=== PATIENT | female | born 1995 | race Caucasian/White ===

== ENCOUNTER 2018-08-30 23:13 | Emergency (ER) | payer SELFPAY ==
[~2018-08-30 23:13] MED LIST: ACET-1966 PO; ALBU8.5H IH; ALBU8.5H12 IH; AZIT-18 PO; DOXY-179 PO; ETON68IM SQ; FLUT1DIS27 IH; IBUP800T37 PO; PANT40TA65 PO; PRED-1 PO; PRED20TA6 PO; TRAM-420 PO
[2018-08-30] MEDS ORDERED: FAMOTIDINE(*) 20MG/50ML PREMIX 50 ML IVPB ONE (23:20)
[2018-08-30] MEDS ORDERED: ONDANSETRON 4 MG/2 ML VIAL IVP ONE (23:20)
[2018-08-30] MEDS ORDERED: PREN-127 PO (23:27)
--- NOTE | 2018-08-30 23:30 | ER Report ---
History and Physical Time Seen By MD: 23:15 Hx. of Stated Complaint: PATIENT C/O ABOUT MID ABDOMINAL PAIN RADIATING TO BACK, SOME NAUSEA , IT STARTED AROUND 22:00 HPI/ROS CHIEF COMPLAINT: epigastric pain, nausea and may be HISTORY OF PRESENT ILLNESS: Pt states that she is 3 days late with her period and she is concerned she may be . Pt states she has been nauseated with dry heaving. Tonight when lying in bed pt started with epigastric pain that radiates to her back. No change in bm. no dysuria. no fevers or chills. Pt states she did take omeprazole this afternoon due to reflux. no cp or sob REVIEW OF SYSTEMS: Constitutional: No fever, no chills. Eyes: No discharge. ENT: No sore throat. Cardiovascular: No chest pain, no palpitations. Respiratory: No cough, no shortness of breath. Gastrointestinal: + abdominal pain, +dry heaving, + nausea Genitourinary: No hematuria or dysuria. Musculoskeletal: No back pain. Skin: No rashes. Neurological: No headache. Allergies: Coded Allergies: amoxicillin (Verified Adverse Reaction, Intermediate, DIARRHEA, HEART BURN, 12/14/16) Home Meds Reported Medications Vits W-Ca,Fe,Fa(<1MG) ( VITAMINS) 1 Each Tablet, PO DAILY, TAB 08/30/18 Discontinued Reported Medications Etonogestrel (NEXPLANON) 68 Mg Implant, 68 MG SQ 03/25/14 Past Medical/Surgical History Pmhx: headaches, bronchitis, asthma, fractures. Patient is no significant past surgical history. Hx Smoking: Yes (1/2 PACK/DAY) Smoking Status: Current: Every Day Smoker Exposure to Second Hand Smoke?: Yes Hx Substance Use Disorder: No Hx Alcohol Use: No Constitutional Vital Sign - Last 24 Hours 08/30/18 08/30/18 08/30/18 08/30/18 23:16 23:17 23:18 23:25 Temp 97.6 Pulse 101 72 Resp 20 B/P (MAP) 142/89 (106) 142/89 157/89 (111) 157/89 (111) Pulse Ox 96 96 O2 Delivery Room Air Room Air 08/30/18 08/30/18 08/30/18 23:28 23:30 23:43 Pulse 81 76 B/P (MAP) 116/94 (101) Pulse Ox 93 93 O2 Delivery Room Air Room Air Intake and Output 08/30/18 08/30/18 08/31/18 14:59 22:59 06:59 Intake Total 50 ml Balance 50 ml Physical Exam General Appearance: The patient is alert, has no immediate need for airway protection and no signs of toxicity. Eyes: Pupils equal and round no pallor or injection, EOMI ENT: no pharyngeal erythema or exudates, Mucous membranes are moist, TM are nl b/l Respiratory: There are no retractions, lungs are clear to auscultation. Cardiovascular: Regular rate and rhythm. pulses are equal and symmetrical Gastrointestinal: Abdomen is soft with epigastric tenderness, no masses, bowel sounds normal, no guarding, no rigidity or rebound Neurological: Cranial nerves II-XII grossly intact, no sensory or motor loss Skin: Warm and dry, no rashes. Musculoskeletal: Neck is supple non tender, no vertebral tenderness, no costophrenic tenderness Extremities are nontender, non swollen and have full range of motion. DIFFERENTIAL DIAGNOSIS: After history and physical exam differential diagnosis was considered for PUD, gastritis, h pylori, pancreatitis, early appendicitis, Medical Decision Making Data Points Result Diagram: 08/30/18232808/30/182328 Laboratory Hematology Test 08/30/18 23:29 Red Blood Count 5.70 M/uL (4.17-5.56) Mean Corpuscular Volume 89.1 fL (80.0-96.0) Mean Corpuscular Hemoglobin 30.7 pg (26.0-33.0) Mean Corpuscular Hemoglobin Concent 34.4 g/dL (32.0-36.0) Red Cell Distribution Width 13.5 % (11.5-14.5) Mean Platelet Volume 10.0 fL (7.2-11.1) Neutrophils (%) (Auto) 49.3 % (39.4-72.5) Lymphocytes (%) (Auto) 39.1 % (17.6-49.6) Monocytes (%) (Auto) 7.0 % (4.1-12.4) Eosinophils (%) (Auto) 3.4 % (0.4-6.7) Basophils (%) (Auto) 1.2 % (0.3-1.4) Nucleated RBC Relative Count (auto) 0.1 /100WBC Neutrophils # (Auto) 3.3 K/uL (2.0-7.4) Lymphocytes # (Auto) 2.7 K/uL (1.3-3.6) Monocytes # (Auto) 0.5 K/uL (0.3-1.0) Eosinophils # (Auto) 0.2 K/uL (0.0-0.5) Basophils # (Auto) 0.1 K/uL (0.0-0.1) Nucleated RBC Absolute Count (auto) 0.01 K/uL Sodium Level 143 mmol/L (137-145) Potassium Level 3.8 mmol/L (3.5-5.0) Chloride Level 110 mmol/L (98-107) Carbon Dioxide Level 24 mmol/L (22-31) Blood Urea Nitrogen 10 mg/dl (7-18) Creatinine 0.70 mg/dl (0.52-1.04) Glomerular Filtration Rate Calc > 60.0 Random Glucose 103 mg/dl (75-110) Calcium Level 9.1 mg/dl (8.4-10.2) Total Bilirubin 0.7 mg/dl (0.2-1.3) Aspartate Amino Transf (AST/SGOT) 15 U/L (0-35) Alanine Aminotransferase (ALT/SGPT) 36 U/L (0-56) Alkaline Phosphatase 86 U/L (0-126) Total Protein 6.8 g/dl (6.3-8.2) Albumin 3.9 g/dl (3.5-5.0) Lipase 138 U/L (23-300) Human Chorionic Gonadotropin, Qual Negative (NEGATIVE) Helicobacter pylori IgG Antibody Negative (NEGATIVE) Chemistry Test 08/30/18 23:29 White Blood Count 6.8 k/uL (4.5-11.0) Red Blood Count 5.70 M/uL (4.17-5.56) Hemoglobin 17.5 g/dL (12.0-16.0) Hematocrit 50.8 % (34.0-47.0) Mean Corpuscular Volume 89.1 fL (80.0-96.0) Mean Corpuscular Hemoglobin 30.7 pg (26.0-33.0) Mean Corpuscular Hemoglobin Concent 34.4 g/dL (32.0-36.0) Red Cell Distribution Width 13.5 % (11.5-14.5) Platelet Count 146 K/uL (150-450) Mean Platelet Volume 10.0 fL (7.2-11.1) Neutrophils (%) (Auto) 49.3 % (39.4-72.5) Lymphocytes (%) (Auto) 39.1 % (17.6-49.6) Monocytes (%) (Auto) 7.0 % (4.1-12.4) Eosinophils (%) (Auto) 3.4 % (0.4-6.7) Basophils (%) (Auto) 1.2 % (0.3-1.4) Nucleated RBC Relative Count (auto) 0.1 /100WBC Neutrophils # (Auto) 3.3 K/uL (2.0-7.4) Lymphocytes # (Auto) 2.7 K/uL (1.3-3.6) Monocytes # (Auto) 0.5 K/uL (0.3-1.0) Eosinophils # (Auto) 0.2 K/uL (0.0-0.5) Basophils # (Auto) 0.1 K/uL (0.0-0.1) Nucleated RBC Absolute Count (auto) 0.01 K/uL Glomerular Filtration Rate Calc > 60.0 Calcium Level 9.1 mg/dl (8.4-10.2) Total Bilirubin 0.7 mg/dl (0.2-1.3) Aspartate Amino Transf (AST/SGOT) 15 U/L (0-35) Alanine Aminotransferase (ALT/SGPT) 36 U/L (0-56) Alkaline Phosphatase 86 U/L (0-126) Total Protein 6.8 g/dl (6.3-8.2) Albumin 3.9 g/dl (3.5-5.0) Lipase 138 U/L (23-300) Human Chorionic Gonadotropin, Qual Negative (NEGATIVE) Helicobacter pylori IgG Antibody Negative (NEGATIVE) ED Course/Re-evaluation Clinical Indication for ER IV: IV Access ED Course check labs and medicate 08/31/2018 12:39:39 am Pts pain resolved after the GI cocktail. Pts labs are stable. Pts hb level similar to priors. Pts test is negative today. pt is 3 days late. recommend pt take a home test this week if still not have her period. 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 Pt has omeprazole at home but does not take it regularly. Will have pt start daily. Pt is to follow up with pcp and gear tooth lapping machine operator. If symptoms change (fever, worsening symptoms, etc) then she is to return for repeat blood work and possible imaging. At this time with improvement of symptoms and no fever or elevation in wbc radiation risk too high for imaging Decision to Disposition Date: Aug 31, 2018 Decision to Disposition Time: 00:43 Depart Departure Latest Vital Signs Vital Signs Date Time Temp Pulse Resp B/P (MAP) Pulse Ox O2 Delivery O2 Flow Rate FiO2 08/30/18 23:43 76 93 Room Air 08/30/18 23:30 116/94 (101) 08/30/18 23:17 97.6 20 Impression: Primary Impression: Gastroenteritis Additional Impression: Epigastric abdominal pain Condition: Improved Disposition: HOME OR SELF-CARE Referrals: MADELIN LOUIS MD New Scripts Ondansetron Hcl (ZOFRAN) 4 Mg Tablet 4 MG PO Q6-8H PRN for NAUSEA/VOMITING, #15 TAB Prov: GURU SUN DO 08/31/18 Patient Instructions: Epigastric Pain (ED) Additional Instructions: Omeprazole (prilosec) once a day for the next 2 weeks Zofran one every 6 hours as needed for nausea. Follow up with corporate fitness program coordinator. If you do not get your menses in next 48 hours then recheck a test. Return for any concerns. Problem Qualifiers GURU SUN DO Aug 30, 2018 23:30
[2018-08-30 23:44] LABS: PLATELET COUNT, AUTOMATED 146 K/uL (150-450)
[2018-08-31] MEDS ORDERED: LIDOCAINE 2% VISC SLN 15ML UDC PO ONE
[2018-08-31] MEDS ORDERED: NS(*) 0.9% 1000 ML BAG 1,000 ML IV ONE
[2018-08-31] MEDS ORDERED: ATRO/SCOPOL/HYOSCY/PB 5 ML ELX PO ONE
[2018-08-31] MEDS ORDERED: MAG HYD/AL HYD/SIMETH 30ML UDC PO ONE
[2018-08-31 00:30] VITALS: BP 110/84
[2018-08-31] MEDS ORDERED: ONDA4TAB97 PO (00:44)
== END 2018-08-31 00:52 | disposition home or self-care (01) ==
LOC: ER 23:27
DX: K52.9 Noninfective gastroenteritis and colitis, unspecified (principal); R10.13 Epigastric pain
CPT/HCPCS: 36415; 83690; 84703; 85025; 86677; 96361; 96365; 96375; 99284; J2405; J3490; J7030; 82040; 82247; 82310; 82374; 82435; 82565; 82947; 84075; 84132; 84155; 84295; 84450; 84460; 84520

== ENCOUNTER 2018-09-28 15:41 | Emergency (ER) | payer SELFPAY ==
[~2018-09-28 15:41] MED LIST changes: +ONDA4TAB97 PO; +PREN-127 PO
--- NOTE | 2018-09-28 15:57 | ER Report ---
History and Physical Time Seen By MD: 15:56 Hx. of Stated Complaint: PT STARTED HAVING RIGHT SIDED BACK/ SIATIC PAIN LAST WEEK. 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 PT REPORTS PAIN STARTS IN RIGHT HIP/ BUTTOCKS, SHOOTS DOWN HER LEG AND THEN BACK UP INTO HER BACK AND SHOULDER HPI/ROS CHIEF COMPLAINT: Hip pain radiating HISTORY OF PRESENT ILLNESS: Patient is a 23 year old female presenting to the ED for hip pain that is radiating. Patient has a knot in her muscles that became agitated after a friend tried to rub it out. This happened about 1 to 2 weeks ago. 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 Patient states the pain radiates down her right leg and up towards the shoulder. Patient has tried Ibuprofen and Tylenol, stating it does not take care of the pain. Patient also states she is unable to put full weight on the leg due to pain. REVIEW OF SYSTEMS: General: No fever/chills. Respiratory: No cough, no dyspnea. Cardiovascular: No chest pain, no palpitations. Gastrointestinal: Some nausea, no vomiting, no abdominal pain. Musculoskeletal: See HPI : No dysuria, constipation, diarrhea Allergies: Coded Allergies: amoxicillin (Verified Adverse Reaction, Intermediate, DIARRHEA, HEART BURN, 12/14/16) Home Meds Active Scripts Prednisone (PREDNISONE) 20 Mg Tablet, 40 MG PO DAILY, #10 TAB Prov:CHVEY SHELTON [facility] 09/28/18 Cyclobenzaprine Hcl (CYCLOBENZAPRINE HCL) 10 Mg Tablet, 10 MG PO TID PRN for MUSCLE SPASMS, #15 TAB Prov:CHEVY SHELTON [facility] 09/28/18 Discontinued Reported Medications Vits W-Ca,Fe,Fa(<1MG) ( VITAMINS) 1 Each Tablet, PO DAILY, TAB 08/30/18 Discontinued Scripts Ondansetron Hcl (ZOFRAN) 4 Mg Tablet, 4 MG PO Q6-8H PRN for NAUSEA/VOMITING, #15 TAB Prov:GURU SUN DO 08/31/18 Past Medical/Surgical History Patient has a medical history of bronchitis, asthma, and left humerus fracture. Patient has not had any previous surgeries. Hx Smoking: Yes (1/2 PACK/DAY) Smoking Status: Current: Every Day Smoker Exposure to Second Hand Smoke?: Yes Hx Substance Use Disorder: No Hx Alcohol Use: No Constitutional Vital Sign - Last 24 Hours 09/28/18 09/28/18 09/28/18 09/28/18 15:41 15:45 15:45 16:00 Temp 98.0 Pulse ??? 80 Resp 16 B/P (MAP) 145/93 145/93 (110) 129/82 (98) Pulse Ox 94 O2 Delivery Room Air 09/28/18 09/28/18 09/28/18 09/28/18 16:11 16:30 16:41 17:00 Pulse 65 61 B/P (MAP) 115/66 (82) Pulse Ox 95 95 91 09/28/18 17:30 B/P (MAP) 98/72 (81) Pulse Ox 92 Physical Exam General Appearance: The patient is alert, has no immediate need for airway protection and no current signs of toxicity. Respiratory: Chest is non tender, lungs are clear to auscultation. Cardiac: Regular rate and rhythm Gastrointestinal: Abdomen is soft and non tender, no masses, bowel sounds normal. Musculoskeletal: Bilateral leg strength is equal. Pulses 2+ bilaterally. Tender to palpitation right lower back. DIFFERENTIAL DIAGNOSIS: After history and physical exam differential diagnosis was considered for nerve impingement, muscle strain, sciatic nerve inflammation. Medical Decision Making Data Points Laboratory Hematology Test 09/28/18 16:40 Human Chorionic Gonadotropin, Qual Negative (NEGATIVE) Chemistry Test 09/28/18 16:40 Human Chorionic Gonadotropin, Qual Negative (NEGATIVE) EKG/Imaging Imaging LUMBAR SPINE 4 VIEWS INDICATION: Back pain. COMPARISON: 07/26/2015. FINDINGS: 5 views of the lumbar spine. There are 5 nonrib-bearing lumbar vertebral bodies. The vertebral bodies are aligned. No compression fractures, bony lesions or spondylolysis. No degenerative changes. The endplates are maintained. Pedicles well seen. Soft tissues are unremarkable. IMPRESSION: Normal exam. Report Dictated By: Jovani Ramirez at 09/28/2018 5:31 PM Report E-Signed By: Jovani Ramirez at 09/28/2018 5:34 PM ED Course/Re-evaluation ED Course Patient arrived at the ED and was placed in a room. History and physical were obtained. Differential diagnoses were considered. On examination lungs are clear, heart is regular, abdomen soft nontender. Patient did have some tenderness to the right side of the lumbar spine as well as to the spine itself. A serum hcg and lumbar x-ray were ordered. After results of hcg was reviewed, patient had a lumbar x-ray was obtained. X-rays showed no acute findings. Ketorolac 30 mg IM and Orphenadrine 30 mg IM was given. Prescription was given for prednisone and cyclobenzaprine. Patient was given instructions and discharged to home. Patient is to follow-up with primary care provider for further evaluation. Patient I believe is just having sciatic pain. We will go ahead and treat accordingly. If pain persists may need to see [facility] for definitive care. Decision to Disposition Date: Sep 28, 2018 Decision to Disposition Time: 18:24 Depart Departure Latest Vital Signs Vital Signs Date Time Temp Pulse Resp B/P (MAP) Pulse Ox O2 Delivery O2 Flow Rate FiO2 09/28/18 17:30 98/72 (81) 92 09/28/18 16:41 61 09/28/18 15:45 98.0 16 Room Air Impression: Primary Impression: Back pain Condition: Improved Disposition: HOME OR SELF-CARE New Scripts Prednisone (PREDNISONE) 20 Mg Tablet 40 MG PO DAILY, #10 TAB Prov: CHEVY SHELTON 09/28/18 Cyclobenzaprine Hcl (CYCLOBENZAPRINE HCL) 10 Mg Tablet 10 MG PO TID PRN for MUSCLE SPASMS, #15 TAB Prov: CHEVY SHELTON 09/28/18 Patient Instructions: Acute Low Back Pain (ED) Additional Instructions: Limit activity by pain. Alternate ice and heat to the back. Increase low impact aerobic activity. Return to the ER if condition worsens. Follow up with your primary care provider in the next week. Problem Qualifiers Primary Impression: Back pain Back pain location: low back pain Chronicity: acute Back pain laterality: right Sciatica presence: with sciatica Sciatica laterality: sciatica of right side Qualified Codes: M54.41 - Lumbago with sciatica, right side CHEVY SHELTON Sep 28, 2018 15:57
[2018-09-28 17:30] VITALS: BP 98/72
--- NOTE | 2018-09-28 17:38 | RADIOLOGY IMAGING REPORT ---
FACILITY: [facility] [place] PATIENT NAME: France Dominguez : 1995 MR: [id number] V: [id number] EXAM DATE: ORDERING PHYSICIAN: CHEVY SHELTON TECHNOLOGIST: Location: [facility] Patient: France Dominguez : 1995 Visit/Account:[id number] Date of Sevice: 09/28/2018 LUMBAR SPINE 4 VIEWS INDICATION: Back pain. COMPARISON: 07/26/2015. FINDINGS: 5 views of the lumbar spine. There are 5 nonrib-bearing lumbar vertebral bodies. The vert ebral bodies are aligned. No compression fractures, bony lesions or spondylolysis. No degenerative ch anges. The endplates are maintained. Pedicles well seen. Soft tissues are unremarkable. IMPRESSION: Normal exam. Report Dictated By: Jovani Ramirez at 09/28/2018 5:31 PM Report E-Signed By: Jovani Ramirez at 09/28/2018 5:34 PM WSN:[id number]
[2018-09-28] MEDS: ORPHENADRINE 60MG/2ML INJ IM ONE (17:46)
[2018-09-28] MEDS: KETOROLAC 30 MG/ML VIAL IM ONE (17:46)
[2018-09-28] MEDS ORDERED: PRED20TA6 PO (18:23)
[2018-09-28] MEDS ORDERED: CYCL10TA29 PO (18:23)
== END 2018-09-28 18:30 | disposition home or self-care (01) ==
LOC: ER 15:46
DX: M54.41 Lumbago with sciatica, right side (principal)
CPT/HCPCS: 36415; 84703; 96372; 99283; J1885; J2360; 72120

== ENCOUNTER → 2018-12-20 | Outpatient (CLI) | payer MEDICAID ==
[~2018-12-20] MED LIST changes: +CYCL10TA29 PO; +NITR-105 PO
[2018-12-20 11:45] LABS: PLATELET COUNT, AUTOMATED 141 K/uL (150-450)
== END ==
LOC: LAB 08:21
PROVIDERS: ATTEND Student in an Organized Health Care Education/Training Program
DX: Z34.91 Encounter for supervision of normal pregnancy, unspecified, first trimester (principal); B96.89 Other specified bacterial agents as the cause of diseases classified elsewhere
CPT/HCPCS: 36415; 81001; 85025; 86592; 86703; 86762; 86850; 86900; 86901; 87088; 87186; 87340

== ENCOUNTER → 2018-12-24 | Outpatient (CLI) | payer MEDICAID | LOC: LAB 08:48 | PROVIDERS: ATTEND Student in an Organized Health Care Education/Training Program | DX: Z34.91 Encounter for supervision of normal pregnancy, unspecified, first trimester (principal) | CPT/HCPCS: 87491; 87591 ==

== ENCOUNTER → 2019-02-21 | Outpatient (CLI) | payer MEDICAID ==
--- NOTE | 2019-02-21 16:09 | RADIOLOGY IMAGING REPORT ---
FACILITY: [facility] [place]IENT NAME: France Dominguez : 1995 MR: [id number] V: [id number] EXAM DATE: ORDERING PHYSICIAN: MADELIN LOUIS TECHNOLOGIST: Location: [facility] [place] Patient: France Dominguez : 1995 Visit/Account:[id number] Date of Sevice: 02/21/2019 EXAMINATION: Ultrasound transabdominal OB > 14 weeks with anatomic evaluation HISTORY: 20 week anatomical survey COMPARISON: None. TECHNIQUE: Transabdominal imaging was performed for assessment of the fetus and maternal pelvic structures. T ransvaginal imaging was performed to evaluate the cervical os FINDINGS: Placenta: Posterior without previa. Uterus: Gravid, otherwise normal Cervix: Long and closed. Maternal Ovaries: Not visualized. Maternal and other adnexa findings: Not visualized Intrauterine gestations: One. presentation: Breech heart rate: Normal and regular at 158 bpm Amniotic fluid index: 10.76 cm Largest amniotic fluid pocket: 3.26 cm Gestational Parameters: BPD: 4.28 cm 19 weeks/ zero days, 12% HC: 17.2 cm 18 weeks/ six days, 32% AC: 14.56 cm 20 weeks/ zero days, 40% FL: 3.12 cm 19 weeks/ five days, 31% Average ultrasound age (AUA): 19 weeks/five days, SABINA 07/13/2019 Estimated gestational age by SABINA: 20 weeks/zero days, SABINA 07/11/2019 Estimated weight (EFW): 311 grams +/- 45 grams EFW for SABINA: 32 percentile Anatomic Survey: Intracranial structures, 4-chamber heart, stomach, kidneys, urinary bladder, spine, 3-vessel cord and cord insertion are unremarkable. Two upper and two lower extremities visualized. Cardiac ventricula r outflow tracts, palate and lips are unremarkable in appearance. IMPRESSION: Single viable fetus in breech presentation with an estimated gestational age by measurem ents of 19 weeks and five days. Estimated gestational age by LMP is 20 weeks and zero days. Estimated weight 311 g which is equivalent to the 32nd percentile. Report Dictated By: Halley Montes MD at 02/21/2019 3:56 PM Report E-Signed By: Halley Montes MD at 02/21/2019 4:04 PM WSN:[id number]
== END ==
LOC: US 00:26
PROVIDERS: ATTEND Obstetrics & Gynecology
DX: Z36.89 Encounter for other specified antenatal screening (principal)
CPT/HCPCS: 76817